=== PATIENT | male | born 1975 | race African-American/Black ===

== ENCOUNTER 2023-05-20 16:55 | Emergency (ER) | payer OTHER, SELFPAY ==
[2023-05-20 16:59] VITALS: BP 148/86; PULSE 101; RESP 20; TEMP 36.6; O2SAT 96
--- NOTE | 2023-05-20 17:58 | ED_ITS ---
HPI - General Adult General Date Seen: 05/20/23 Chief complaint: Fall/Minor Trauma Stated complaint: neck/shoulder pain after fall Time Seen by Provider: 05/20/23 17:57 History of Present Illness HPI narrative: 48-year-old male presents to the ER today for neck and shoulder pain. He fell backwards down 4 steps 2 days ago and landed on his right side. He is here today because he is having increasing pain in his right shoulder and his neck. He did not hit his head. No LOC. He went to the ER at [facility] today but we did their lobby for 2 hours and 45 minutes without being seen. He left there and came here to the ER because he did not want to wait. He did receive ibuprofen at triage at [place] He did not get any relief in pain from that medication.. He is endorsing a lot of pain in the midline at the base of his neck. He is also having some pain radiating across the trapezius ridge at the top of the shoulder. He is able to move his shoulder and arm normally. No numbness or tingling down his arm. No weakness. He does not have any pain in the occipital region of his head or any headache at all. He did not lose consciousness when he fell. No headache. No blurry vision. No nausea vomiting. No other injury from the fall. No rib pain or pain with breathing. No shortness of breath. No abdominal pain. No low back pain. No hip pain. No lower extremity injury. Related Data Previous Rx's Medication Instructions Recorded hydrocodone 5 mg-acetaminophen 325 1 tab PO Q4-6H PRN pain #10 tabs 05/20/23 mg tablet Allergies Allergy/AdvReac Type Severity Reaction Status Date / Time No Known Drug Allergies Allergy Verified 05/20/23 17:03 [facility] Social History Smoking Status: Current some day smoker Do you use any of these nicotine containing products: None How often do you have a drink containing alcohol: never How often do you have six or more drinks on one occasion: Never AUDIT-C Alcohol total score: 0 Non-prescribed substance use: denies use Exam Narrative: Exam Narrative: Constitutional: Appears well-developed and well-nourished. Alert. Conversant. Non toxic. HENT: Head: Atraumatic. Nose: Nose normal. Mouth/Throat: Oral mucosa is clear and moist. no trismus. Pharynx normal. Tonsils symmetric. No tonsillar enlargement, erythema, or exudate. Eyes: Conjunctivae normal. EOM normal. Pupils equal, round, and reactive to light. No scleral icterus. Neck: Quite tender over the midline lower C-spine in the C7-T1 range. No definite crepitus. No step-off. Also mildly tender over the upper ridge of the right trapezius muscle toward the right shoulder. No lower T or L-spine tenderness. Normal range of motion. Neck supple. No tracheal deviation present. Cardiovascular: Normal rate, regular rhythm. No gallop. No friction rub. No murmur heard. Symmetric radial artery pulses Pulmonary/Chest: Effort normal. No stridor. No respiratory distress. No wheezes. No rales. No rhonchi . No tenderness. Abdominal: Soft. Bowel sounds normal. No distension. No mass. No tenderness. No rebound. No guarding. Musculoskeletal: RUE: Tender over the right trapezius. No tenderness over the AC joint, proximal humerus, shoulder. Clavicle nontender. Normal range of motion in the glenohumeral joint. Humeral shaft, elbow, forearm, wrist, hand nontender. LUE: Normal range of motion. No tenderness. No deformity RLE: Normal range of motion. No edema. No tenderness. No deformity LLE: Normal range of motion. No edema. No tenderness. No deformity Lymph: No cervical adenopathy. Neurological: Alert and oriented to person, place, and time. Normal strength. CN II-VII intact. No sensory deficit. GCS eye subscore is 4. GCS verbal subscore is 5. GCS motor subscore is 6. Normal coordination Intact bilateral deltoid, biceps, triceps, [employer], finger abduction, thumb abduction, and strength testing of both upper extremities. Intact bilateral C5, C6, C7, C8, T1 dermatome sensory function to light touch. Skin: Skin is warm and dry. No rash noted. No pallor. Normal capillary refill. Psychiatric: Normal mood. Normal affect. Const: Vital Signs, click to edit/add: Vital Signs - 24 hr 05/20/23 16:59 Temperature 97.8 F Pulse Rate [Pulse Oximeter] 101 H Respiratory Rate 20 Blood Pressure [Ri ght Upper Arm] 148/86 H Pulse Oximetry 96 Oxygen Delivery Me thod Room Air Course Vital Signs Vital signs: Initial Vital Signs Temperature 97.8 F 05/20/23 16:59 Temperature Source Oral 05/20/23 16:59 Pulse Rate 101 H 05/20/23 16:59 Pulse Strength 3+ Normal 05/20/23 16:59 Respiratory Rate 20 05/20/23 16:59 Blood Pressure 148/86 H 05/20/23 16:59 Blood Pressure Mean 106 H 05/20/23 16:59 Blood Pressure Position Sitting 05/20/23 16:59 Pulse Oximetry 96 05/20/23 16:59 Oxygen Delivery Method Room Air 05/20/23 16:59 Vital Signs Temperature 97.8 F 05/20/23 16:59 Pulse Rate 101 H 05/20/23 16:59 Respiratory Rate 20 05/20/23 16:59 Blood Pressure 148/86 H 05/20/23 16:59 Pulse Oximetry 96 05/20/23 16:59 Oxygen Delivery Method Room Air 05/20/23 16:59 Temperature 97.8 F 05/20/23 16:59 Pulse Rate 101 H 05/20/23 16:59 Respiratory Rate 20 05/20/23 16:59 Blood Pressure 148/86 H 05/20/23 16:59 Pulse Oximetry 96 05/20/23 16:59 Oxygen Delivery Method Room Air 05/20/23 16:59 Medications Administered Medications: Generic Name Dose Route Start Last Admin Trade Name Freq PRN Reason Stop Dose Admin Hydrocodone Bitart/Acetaminophen 1 tab 05/20/23 18:06 05/20/23 18:13 Hydrocodone-Acetamin 5-325 Mg 1 Tab PO 05/20/23 18:07 1 tab ONCE ONE Administration Medical Decision Making [facility] Narrative Medical decision making narrative: 48-year-old gentleman presents to the ER today with a 2 day history of posterior neck pain and right shoulder pain it occurred when he his knee popped and do not align cause min to fall down steps. His injury actually occurred 2 nights ago. He does have posterior neck pain including the midline and so I am concerned about possible C-spine fracture. He cannot be cleared by nexus. C- spine CT is obtained and is fortunately negative for any acute fracture or malalignment. He is neurologically intact. No evidence for spinal cord injury. He also had tenderness over the muscular trapezius at the top of the shoulder. X-rays of the shoulder are negative for any evidence for fracture or dislocation. At this point suspect probable neck sprain or musculoskeletal shoulder pain. No indication for emergent neurosurgical or other surgical intervention. Will discharge home with prescription for Cressona that he can use p.r.n.. Opiate and sedation precautions reviewed. He will follow-up with his orthopedist at [facility], for recheck within 1 week. Precautions for return to the ER reviewed. Imaging Data C-spine CT: Attestation: I have reviewed the pertinent imaging results. Radiologist's impression: IMPRESSION: Reversal of the normal cervical lordosis could be positional or related to muscle strain. No fracture or dislocation in the cervical spine or in the T1 vertebral body. XR right shoulder: Attestation: I have reviewed the pertinent imaging results. Radiologist's impression: IMPRESSION: Negative three view right shoulder Discharge Plan Discharge Clinical Impression: Acute neck pain, Acute pain of right shoulder Patient Disposition: Home, Self-Care Condition: Stable Instructions: Shoulder Pain (ED), Acute Neck Pain (ED) Additional Instructions: Please follow-up with your regular doctor or your orthopedist within 1 week for recheck unless you are completely improved. As we discussed, if you have any worsening pain, numbness or weakness down your arm, headache, vomiting, or any other concerns, please come back to the ER right away. Use caution with prescription pain killers ( Cressona) because they can be addictive, cause drowsiness, dizziness, and constipation. Prescriptions: New hydrocodone-acetaminophen 5-325 mg tablet 1 tab PO Q4-6H PRN (Reason: pain) Qty: 10 0RF Follow Up/Referrals: Provider,Not a Local [Primary Care Provider] - Stand Alone Forms: [employer] Info Instructions
--- NOTE | 2023-05-20 18:06 | CRLHL7_ITS ---
For Patients: As a result of the Cures Act, medical imaging exams and procedure reports are released immediately into your electronic medical record. You may view this report before your referring provider. If you have questions, please contact your health care provider. INDICATION: Trauma. Fall. Pain. Rotator cuff surgery. TECHNIQUE: Three views of the right shoulder. FINDINGS: Negative right shoulder. No fracture, dislocation, erosion, or intrinsic lesion. IMPRESSION: Negative three view right shoulder. Dictated by Indra Sanders MD @ 05/20/2023 6:43:50 PM (Electronically Signed)
--- NOTE | 2023-05-20 18:06 | CRLHL7_ITS ---
For Patients: As a result of the Century Cures Act, medical imaging exams and procedure reports are released immediately into your electronic medical record. You may view this report before your referring provider. If you have questions, please contact your health care provider. INDICATION: Fall, pain at C7, C8 and T1. COMPARISON: None. TECHNIQUE: CT of the cervical spine without contrast. Multiplanar axial, coronal, and sagittal reformats were reconstructed. FINDINGS: No fracture or dislocation. Reversal of the normal cervical lordosis with the apex at C4. No disc degenerative change. No facet degenerative change. No severe neural foraminal stenosis. No central canal stenosis. No focal bony lesions. Limited exam of the intracranial contents, soft tissues of the neck, and the lung apices is normal. IMPRESSION: Reversal of the normal cervical lordosis could be positional or related to muscle strain. No fracture or dislocation in the cervical spine or in the T1 vertebral body. Please note that all CT scans at this facility use dose modulation, iterative reconstruction, and/or weight-based dosing when appropriate to reduce radiation dose to as low as reasonably achievable. Dictated by Erin Hennessy MD @ 05/20/2023 6:54:30 PM (Electronically Signed)
[2023-05-20] MEDS: HYDROCODONE-ACETAMIN 5-325 MG 1 TAB PO (18:13)
--- NOTE | 2023-05-20 19:09 | ED.NURSE ---
pt report given to oncduke RN
== END 2023-05-20 19:43 | disposition home or self-care (01) ==
PROVIDERS: Emergency Provider Emergency Medicine
DX: M25.511 Pain in right shoulder (principal); M54.2 Cervicalgia
CPT/HCPCS: 72125; 73030; 99283; 99284; A9270

== ENCOUNTER 2023-07-06 16:13 | Emergency (ER) | payer MEDICAID, SELFPAY ==
[2023-07-06 16:18] VITALS: BP 156/93; PULSE 104; RESP 20; TEMP 36.3; O2SAT 98; BMI 32.5
--- NOTE | 2023-07-06 16:28 | ED.GENADULT ---
HPI - General Adult General Date Seen: 07/06/23 Chief complaint: Unspecified Complaint, Adult Stated complaint: Passing blood and clots via penis Time Seen by Provider: 07/06/23 16:17 Source: patient Mode of arrival: ambulatory Limitations: no limitations History of Present Illness HPI narrative: Patient is a 48-year-old male who presents with a couple days of urinary frequency, today with dysuria and hematuria. Has passed some small clots. He says he has a pulling sensation in his lower abdomen when he urinates, a discomfort that makes him feel like he still needs to go. He has not had any severe abdominal pain, has chronic back pain but no changes there. Denies fevers or chills, no nausea or vomiting. Denies penile discharge, no known exposure to STDs although he says he cannot rule that out with the way the world is today. Related Data Previous Rx's Medication Instructions Recorded hydrocodone 5 mg-acetaminophen 325 1 tab PO Q4-6H PRN pain #10 tabs 05/20/23 mg tablet Allergies Allergy/AdvReac Type Severity Reaction Status Date / Time No Known Drug Allergies Allergy Verified 05/20/23 17:03 Review of Systems Status of ROS: Reports: 6 or more systems reviewed and unremarkable except as noted in History and below [facility] Social History Smoking Status: Current some day smoker Do you use any of these nicotine containing products: None How often do you have a drink containing alcohol: never How often do you have six or more drinks on one occasion: Never AUDIT-C Alcohol total score: 0 Non-prescribed substance use: denies use service: No Exam Narrative: Exam Narrative: Vital signs as noted above. In general, an alert, well-appearing patient. Head: Normocephalic, atraumatic. Eyes: Pupils are equal reactive. Extraocular movements are full. Conjunctivae are normal. ENT: Mucous membranes are moist. Throat is normal. Neck: Supple without lymphadenopathy. Heart: Regular rate and rhythm. No murmur or rub. Lungs: Clear bilaterally. No increased work of breathing, crackles or wheezes. Abdomen: Soft and nontender. No CVA tenderness. Extremities: Well perfused. No edema. No calf tenderness. Pulses intact. Neurologic: Patient is alert and oriented to person and place. Speech is fluent. Face is symmetric. Moves all extremities equally. Affect: Normal. Skin: Warm and dry. Well perfused. Const: Vital Signs, click to edit/add: Vital Signs - 24 hr 07/06/23 16:18 Temperature 97.4 F L Pulse Rate [Pulse Oximeter] 104 H Respiratory Rate 20 Blood Pressure [Ri ght Upper Arm] 156/93 H Pulse Oximetry 98 Oxygen Delivery Me thod Room Air Documenting provider has reviewed patient's vital signs: yes Course Course ED Course: Patient provided a clean UA initially, this showed greater than 100 red cells and 10-25 white blood cells, moderate bacteria. Overall, the urine suggests urinary tract infection, and his symptoms certainly are suggestive of urinary tract infection as well. Did discuss with him that uncomplicated UTI in men is less common than in women. He did request STD testing for gonorrhea and chlamydia here and so that has been ordered although the significant hematuria is atypical. He really does not describe symptoms that are overly suggestive of prostatitis although I discussed that diagnosis with him. It does not sound to me like he likely has a kidney stone in the absence of significant abdominal or back pain. For now, I have recommended that we treat this as UTI with Macrobid. Discussed that he should be feeling better within 24-48 hours and if not he should be seen again. Urine culture is pending. For worsening, fevers, significant abdominal or back pain, vomiting etcetera, return any time to the emergency department. For persistent hematuria despite treatment, urology follow-up. Vital Signs Vital signs: Initial Vital Signs Temperature 97.4 F L 07/06/23 16:18 Temperature Source Temporal Artery Scan 07/06/23 16:18 Pulse Rate 104 H 07/06/23 16:18 Pulse Rhythm Regular 07/06/23 16:18 Respiratory Rate 20 07/06/23 16:18 Blood Pressure 156/93 H 07/06/23 16:18 Blood Pressure Mean 114 H 07/06/23 16:18 Blood Pressure Position Sitting 07/06/23 16:18 Pulse Oximetry 98 07/06/23 16:18 Oxygen Delivery Method Room Air 07/06/23 16:18 Vital Signs Temperature 97.4 F L 07/06/23 16:18 Pulse Rate 104 H 07/06/23 16:18 Respiratory Rate 20 07/06/23 16:18 Blood Pressure 156/93 H 07/06/23 16:18 Pulse Oximetry 98 07/06/23 16:18 Oxygen Delivery Method Room Air 07/06/23 16:18 Temperature 97.4 F L 07/06/23 16:18 Pulse Rate 104 H 07/06/23 16:18 Respiratory Rate 20 07/06/23 16:18 Blood Pressure 156/93 H 07/06/23 16:18 Pulse Oximetry 98 07/06/23 16:18 Oxygen Delivery Method Room Air 07/06/23 16:18 Medical Decision Making Lab Data Labs: Lab Results 07/06/23 Range/Units 16:54 Urine Color Denita A (Yellow) Urine Appearance Cloudy A (Clear) Urine pH 6.0 (5.0-8.5) Ur Specific [place] >= 1.030 (1.000-1.030) Urine Protein 2+ A (Negative) Urine Glucose (UA) Negative (Negative) Urine Ketones Negative (Negative) Urine Blood 3+ A (Negative) Urine Nitrite Negative (Negative) Urine Bilirubin Negative (Negative) Urine Urobilinogen 0.2 (0.2-1.0) Ur Leukocyte Esterase Trace A (Negative) Urine RBC >100 A (0-2) Urine WBC 10-25 A (0-5) Ur Squamous Epith Cells Few (None-Few) Urine Bacteria Moderate A (None) Discharge Plan Discharge Clinical Impression: Urinary tract infection Patient Disposition: Home, Self-Care Condition: Stable Instructions: Urinary Tract Infection in Men (DC) Additional Instructions: Antibiotic as prescribed. I would expect you to feel better over the next 24-48 hours. If not, you should be seen again. If the urine culture grows an organism which is resistant to Macrobid, we will call you to change it. If at any time you have severe pain, high fevers, vomiting or other worsening return to the emergency department. We will call you if there is anything needing treatment on your STI screening. Prescriptions: No Action hydrocodone-acetaminophen 5-325 mg tablet 1 tab PO Q4-6H PRN (Reason: pain) Qty: 10 0RF Follow Up/Referrals: Provider,Not a Local [Primary Care Provider] - Stand Alone Forms: MyHealth Info Instructions
[2023-07-06 17:01] LABS: Appearance Urine Cloudy (Clear); Bilirubin Urine Negative (Negative); Blood Urine 3+ (Negative); Color Urine Amber (Yellow); Glucose Urine Negative (Negative); Ketones Urine Negative (Negative); Leukocyte Esterase Urine Trace (Negative); Nitrite Urine Negative (Negative); Protein Urine 2+ (Negative); Specific Gravity Urine >= 1.030 (1.000-1.030); Urobilinogen Urine 0.2 (0.2-1.0)
[2023-07-06 17:11] LABS: Bacteria Urine Moderate; RBC Urine >100 (0-2); Squamous Epithelial Cell Urine Few (None-Few)
[2023-07-06 19:57] LABS: Chlamydia DNA Amplified* NOT DETECTED (No Detected); GC DNA Amplified* NOT DETECTED (No Detected)
== END 2023-07-06 17:51 | disposition home or self-care (01) ==
PROVIDERS: Emergency Provider Emergency Medicine
DX: N39.0 Urinary tract infection, site not specified (principal)
CPT/HCPCS: 81001; 87086; 87186; 87491; 87591; 99283; 99284